=== PATIENT | female | born 1965 | race Caucasian/White ===

== ENCOUNTER → 2022-10-30 | Outpatient (CLI) | payer BC ==
--- NOTE | 2022-10-30 12:17 | BD ---
EXAMINATION TYPE: Axial Bone Density DATE OF EXAM: 10/30/2022 CLINICAL HISTORY: 57 years old Female. ICD-10 CODE: M85.88 OTHER DISORDER OF BONE DENSITY Height: 5'5 Weight: 198 FRAX RISK QUESTIONS: History of Fracture in Adulthood: y Secondary Osteoporosis: RISK FACTORS HISTORY OF: Family History of Osteoporosis: y Diet low in dairy products/other sources of calcium: y If Premenopausal, do you have irregular periods: y MEDICATIONS: Thyroid Medications: Which medication: Levothyroxine How Lon years Additional Medications: high blood pressure Additional History: Conor's EXAM MEASUREMENTS: Bone mineral densitometry was performed using the [employer] System. Bone mineral density as measured about the Lumbar spine is: ----- L1-L4(G/cm2): 1.214 T Score Values are as follows: ----- L1: -1.1 ----- L2: 0.6 ----- L3: 0.9 ----- L4: 0.3 ----- L1-L4:0.3 Z Score Values are as follows: ----- L1: -1.1 ----- L2: 0.6 ----- L3: 0.9 ----- L4: 0.3 ----- L1-L4: 0.3 Bone mineral density about the R hip (g/cm2): 0.982 Bone mineral density about the L hip (g/cm2): 0.981 T Score values are as follows: -----R Neck: -0.6 -----L Neck: -0.8 -----R Total: -0.2 -----L Total: -0.2 Z Score values are as follows: -----R Neck: -0.1 -----L Neck: -0.3 -----R Total: -0.1 -----L Total: -0.1 FRAX: The graph provided illustrates a 9.6% chance for a major osteoporotic fx and a 0.4% chance for the hips probability for fx in 10 years time. IMPRESSION: Normal (Values between +1 and -1 indicate normal bone mass). Consider repeating this study in 5 year s or sooner if there is some new clinical indication. NOTE: T-SCORE=SD OF THE YOUNG ADULT MEAN.
--- NOTE | 2022-10-30 13:17 | MM ---
Reason for Exam: Screening (asymptomatic). Risk Values: Molly 5 year model risk: 0.8%. NCI Lifetime model risk: 5.5%. Tissue Density: There are scattered fibroglandular densities. Findings: Analyzed By CAD. There is no suspicious group of microcalcifications or new suspicious mass in either breast. Overall Assessment: Negative, BI-RAD 1 Management: Screening Mammogram of both breasts in 1 year. A clinical breast exam by your physician is recommended on an annual basis and results should be correlated with mammographic findings. [facility] will attempt to contact patient to return for supplemental views and ultrasound if indicated. Electronically signed and approved by: Bebo Soto DO
== END | disposition home or self-care (01) ==
LOC: RADMAMWWP 10:43
PROVIDERS: ATTEND Family Medicine
DX: Z12.31 Encounter for screening mammogram for malignant neoplasm of breast (principal); M85.88 Other specified disorders of bone density and structure, other site; E06.3 Autoimmune thyroiditis
CPT/HCPCS: 77063; 77067; 77080